=== PATIENT | male | born 1985 | race Caucasian/White ===

== ENCOUNTER 2022-12-11 09:48 | Emergency (ER) | payer OTHER ==
[2022-12-11] MEDS ORDERED: Sodium Chloride 0.9% 10 ML Syringe FLUSH PRN (10:01)
[2022-12-11 10:12] LABS: BASOPHILS PERCENT AUTO 0.4 % (0.0-1.0); EOSINOPHILS PERCENT AUTO 1.7 % (1.0-3.0); HEMATOCRIT 48.6 % (40.0-54.0); HEMOGLOBIN 16.1 g/dL (14.0-18.0); LYMPHOCYTES PERCENT AUTO 30.2 % (20.5-50.1); MEAN CORPUSCULAR HEMOGLOBIN 30.4 pg (27.0-34.0); MEAN CORPUSCULAR HGB CONC 33.1 g/dL (33.0-35.0); MEAN CORPUSCULAR VOLUME 91.7 fL (80-100); MONOCYTES PERCENT AUTO 6.2 % (2-8); NEUTROPHILS PERCENT AUTO 61.5 % (42.2-75.2); PLATELET COUNT,PLT 285 10^3/uL (150-450); WHITE BLOOD CELL COUNT,WBC 8.1 10^3/uL (5.0-10.0)
[2022-12-11 10:31] LABS: A/G RATIO 0.9; ALANINE AMINOTRANSFERASE,ALT 33 U/L (16-63); ALBUMIN 4.1 g/dL (3.4-5.0); ALKALINE PHOSPHATASE 101 U/L (46-116); ANION GAP 10.5 mEq/L (7-13); ASPARTATE AMNIOTRANSFERASE,AST 11 U/L (15-37); BILIRUBIN TOTAL 0.5 mg/dL (0.2-1.0); BLOOD UREA NITROGEN,BUN 12 mg/dL (7-18); BUN/CREATININE RATIO 10.1 (No establ ref range); CALCIUM 9.2 mg/dL (8.5-10.1); CARBON DIOXIDE,CO2 29 mmol/L (21-32); CHLORIDE,CL 103 mmol/L (98-107); CREATININE 1.19 mg/dL (0.70-1.30); EST CRCL DRUG DOSING (CG) 99.78 mL/min; GLUCOSE RANDOM 109 mg/dL (70-99); LIPASE 26 U/L (16-77); POTASSIUM,K 3.5 mmol/L (3.5-5.1); PROTEIN TOTAL,TP 8.7 g/dL (6.4-8.2); SODIUM,NA 139 mmol/L (136-145)
[2022-12-11 10:33] LABS: ESTIMATED GFR 81 mL/min (>=60)
== END 2022-12-11 11:43 | disposition home or self-care (01) ==
LOC: DL.ED 09:48
DX: R55 Syncope and collapse (principal); R07.9 Chest pain, unspecified; R00.0 Tachycardia, unspecified
CPT/HCPCS: 36415; 71045; 80053; 83690; 84484; 85025; 85379; 93005; 93010; 99284; 99285; J3490